=== PATIENT | female | born 1975 | race Caucasian/White ===

== ENCOUNTER → 2017-09-06 | Outpatient (CLI) | payer OTHER ==
--- NOTE | 2017-09-06 14:13 | XR ---
Left humerus HISTORY: Pain radiating down arm, tingling in right hand 2 views of the left humerus Bone mineralization, joint spaces and alignment are maintained. No fracture or dislocation. IMPRESSION: No significant abnormalities evident.
--- NOTE | 2017-09-06 14:14 | XR ---
Right hand HISTORY: Pain radiating down left arm injected hand, tingling in right hand 3 views of the right hand Bone mineralization, joint spaces and alignment are maintained. No fracture or dislocation. IMPRESSION: Normal right hand.
== END | disposition home or self-care (01) ==
LOC: RADXRMAIN 10:13
PROVIDERS: ATTEND Emergency Medicine
DX: S60.221A Contusion of right hand, initial encounter (principal); S46.302A Unspecified injury of muscle, fascia and tendon of triceps, left arm, initial encounter; M77.12 Lateral epicondylitis, left elbow

== ENCOUNTER → 2017-09-14 | Outpatient (CLI) | payer OTHER ==
--- NOTE | 2017-09-14 11:55 | XR ---
EXAMINATION TYPE: XR wrist complete RT DATE OF EXAM: 09/14/2017 CLINICAL HISTORY: Right hand and wrist contusion injury with pain TECHNIQUE: Frontal, lateral, scaphoid, and oblique images of the right wrist are obtained. COMPARISON: Right hand x-ray from 8 days ago. FINDINGS: There is no acute fracture/dislocation evident in the right wrist. The joint spaces in th e right wrist appear within normal limits. The overlying soft tissue appears unremarkable. IMPRESSION: There is no acute fracture or dislocation in the right wrist. No significant change from recent hand x-ray.
== END | disposition home or self-care (01) ==
LOC: RADXRMAIN 11:16
PROVIDERS: ATTEND Emergency Medicine
DX: S60.211D Contusion of right wrist, subsequent encounter (principal)

== ENCOUNTER → 2017-12-08 | Outpatient (CLI) | payer BC, OTHER ==
--- NOTE | 2017-12-08 23:32 | MR ---
EXAMINATION TYPE: MR wrist RT wo con DATE OF EXAM: 12/08/2017 COMPARISON: Right wrist x-ray September 14, 2017 HISTORY: Pain in right wrist per order. Pain since September 05 after work injury per patient. Standard multiplanar, multisequence MRI departmental protocol Multiplanar, multisequence images of the right wrist were acquired. FINDINGS: Scapholunate ligament is intact seen best coronal image 10. Lunotriquetral ligament is not well visualized but felt intact as no suspicious widening is seen. Triangular fibrocartilage complex is felt intact. Proximal and distal carpal rows show occasional subchondral cyst. No significant spurring is seen. Bone marrow signal intensity is maintained. Dorsal positioning of wrist is seen on sagittal images. Lunate capitate relationship is preserved. The flexor tendons are felt within normal limits. Median nerve in the retinaculum becomes slightly th ickened and increased signal at level of carpal tunnel. Extensor tendons posteriorly are intact. IMPRESSION: Suspected carpal tunnel syndrome, correlate clinically otherwise fairly unremarkable study.
== END | disposition home or self-care (01) ==
LOC: RADMRIMAIN 13:10
PROVIDERS: ATTEND Family Medicine
DX: M25.531 Pain in right wrist (principal)

== ENCOUNTER → 2018-06-21 | Outpatient (CLI) | payer BC ==
--- NOTE | 2018-06-21 12:04 | P.STRESS ---
- Stress Test Note Stress Test Results/Findings: Exam Performed: stress test Exam Date: 06/21/18 Reason for Exam: Abnormal Ekg Height: 4 ft 11 in Weight: 56.699 kg Protocol: Andreas Stage: 4 Duration of Exercise: 10:00 Resting Heart Rate: 71 Resting Blood Pressure: 103/80 Maximum Achieved Heart Rate: 158 Maximum Achieved Blood Pressure: 140/80 85% PMHR: 152 100% PMHR: 179 METS: 11.5 Technologist Comment: Stress Test Results/Findings: This is a 42-year-old female being evaluated for symptoms of chest pain or shortness of breath. Stress data: Baseline EKG showed sinus rhythm with normal NV interval and QRS duration. Blood pressure at rest is 103/80 with a pulse rate of 71. Patient woke on the Andreas protocol for 10 minutes achieving a maximum heart rate of 158 with a blood pressure 140/80. EKGs taken during and after the exercise did not reveal any significant changes from the baseline. Patient did not experience any chest pain. No arrhythmias are detected. Final impression: #1. Negative stress test #2. Patient did not express any chest pain #3. No arrhythmias are detected #4 . Patient's exercise capacity is good.
--- NOTE | 2018-06-24 14:50 | EST ---
Stress Test Results/Findings: Exam Performed: stress test Exam Date: 06/21/18 Reason for Exam: Abnormal Ekg Height: 4 ft 11 in Weight: 56.699 kg Protocol: Andreas Stage: 4 Duration of Exercise: 10:00 Resting Heart Rate: 71 Resting Blood Pressure: 103/80 Maximum Achieved Heart Rate: 158 Maximum Achieved Blood Pressure: 140/80 85% PMHR: 152 100% PMHR: 179 METS: 11.5 Technologist Comment: Stress Test Results/Findings: This is a 42-year-old female being evaluated for symptoms of chest pain or shortness of breath. Stress data: Baseline EKG showed sinus rhythm with normal IA interval and QRS duration. Blood pressure at rest is 103/80 with a pulse rate of 71. Patient woke on the Andreas protocol for 10 minutes achieving a maximum heart rate of 158 with a blood pressure 140/80. EKGs taken during and after the exercise did not reveal any significant changes from the baseline. Patient did not experience any chest pain. No arrhythmias are detected. Final impression: #1. Negative stress test #2. Patient did not express any chest pain #3. No arrhythmias are detected #4 . Patient's exercise capacity is good. [facility]
== END ==
LOC: RADNMMAIN 10:23
PROVIDERS: ATTEND Family Medicine
DX: R94.31 Abnormal electrocardiogram [ECG] [EKG] (principal)
CPT/HCPCS: 93017

== ENCOUNTER → 2018-09-26 | Outpatient (CLI) | payer BC ==
--- NOTE | 2018-09-27 15:06 | MM ---
Reason for exam: screening (asymptomatic). Last mammogram was performed 8 years and 11 months ago. History: Family history of breast cancer in aunt at age 51 and breast cancer in mother at age 59. Took hormonal contraceptives for 9 months beginning at age 18. Physical Findings: A clinical breast exam by your physician is recommended on an annual basis and results should be correlated with mammographic findings. MG 3D Screening Mammo W/Cad Bilateral CC and MLO view(s) were taken. Prior study comparison: November 09, 2009, bilateral diagnostic digital mammog. April 12, 2005, CAD bilateral diagnostic mammogram. The breast tissue is heterogeneously dense. This may lower the sensitivity of mammography. No suspicious abnormality. No significant changes when compared with prior studies. ASSESSMENT: Negative, BI-RAD 1 RECOMMENDATION: Routine screening mammogram of both breasts in 1 year.
== END | disposition home or self-care (01) ==
LOC: RADMAMWWP 16:07
PROVIDERS: ATTEND Family Medicine
DX: Z12.31 Encounter for screening mammogram for malignant neoplasm of breast (principal); Z80.3 Family history of malignant neoplasm of breast
CPT/HCPCS: 77063; 77067